=== PATIENT | female | born 1975 | race Caucasian/White ===

== ENCOUNTER → 2019-02-03 | Outpatient (CLI) | payer OTHER ==
[2019-02-03 08:17] LABS: BASOPHIL % 0.7 % (0-2); RED CELL DISTRIBUTION WIDTH 13.5 % (11.5-14.5)
[2019-02-03 08:18] LABS: microscopic required? YES; urine erythrocyte 1+ (NEGATIVE)
[2019-02-03 08:19] LABS: PLATELET COUNT 445 x10^3mcL (130-400)
[2019-02-03 09:55] LABS: ALBUMIN 3.4 g/dL (3.4-5.0); ALKALINE PHOSPHATASE 89 U/L (46-116); ALT/SGPT 30 U/L (14-59); AST/SGOT 12 U/L (15-37); BILIRUBIN TOTAL 0.37 mg/dL (0.20-1.00); CARBON DIOXIDE 27.6 mmol/L (21-32); CHLORIDE SERUM 102 mmol/L (98-107); CHOLESTEROL 200 mg/dL (<200); CHOLESTEROL/HDL RATIO 4.4; CREATININE SERUM 0.9 mg/dL (0.6-1.0); GFR1 > 60 mL/min; GLUCOSE SERUM 105 mg/dL (74-106); HDL CHOLESTEROL 45 mg/dL (40-60); POTASSIUM SERUM 4.1 mmol/L (3.5-5.1); SODIUM SERUM 137 mmol/L (136-145); TOTAL PROTEIN, SERUM 7.6 g/dL (6.4-8.2); TRIGLYCERIDES 65 mg/dL (<150)
== END | disposition home or self-care (01) ==
LOC: RD 07:25
DX: M25.562 Pain in left knee (principal); M25.561 Pain in right knee